=== PATIENT | male | born 1995 | race Caucasian/White ===

== ENCOUNTER 2018-09-06 18:27 | Emergency (ER) | payer MEDICAID ==
[~2018-09-06] VITALS: Ht 127 cm; Wt 40.4 kg
[~2018-09-06 18:27] MED LIST: ALBU2.5V13 IH; CHOL1CRY2 GT; ERYT200S16 GT; GABA-534 GT; IBUP25PO GT; LANS15CA18 GT; MONT10TA22 GT; MULT1TAB73 GT; NYST5ORA PO; PHEN20EL5 GT; TYL2T GT; [UNRECOGNIZED DRUG - CODE] IH
--- NOTE | 2018-09-06 19:37 | NUR ---
Pt BIBMOTHER FROM HOME. Pt HAS HX OF CEREBRAL PALSY. PER MOTHER's STATEMENT Pt HAS BEEN SHOWING SOME SOB FOR THE PAST 2 DAYS. MOTHER DENIES Pt HAVING ANY FEVER AT HOME. Pt WAS SEEN BY A [employer] ASSEMBLER EARLIER TODAY, AND WAS TOLD TO GO TO THE ER TO DO SOME TESTS; MOTHER IS SUSPECTING THAT THERE MIGHT BE AN INFECTION IN HIS LUNGS. Pt IS SITTING IN HIS POWERWHEELCHAIR WITH MOTHER AT SIDE. WAITING FOR MD ORDERS. WILL CONTINUE TO MONITOR Pt's CONDITION AND SAFETY.
[2018-09-06] MEDS ORDERED: IV NS 0.9% 500 ML BAG IV ONE (20:00)
--- NOTE | 2018-09-06 20:00 | NUR ---
ATTEMPTED X2 TO START IV. NO SUCCESS. Pt IS A HARDSTICK WITH CONTRACTED UPPER EXT. PIPE MACHINE OPERATOR WAS UNSUCCESSFUL IN DOING LAB DRAW. AND PER MOTHER's REQUEST DID NOT WANT US TO PICK HIM AGAIN. WILL TRY AGAIN LATER WITH A DIFFERENT NURSE.
[2018-09-06] MEDS ORDERED: MISCELLANEOUS MED 1 EA EA XX ONE (21:00)
[2018-09-06] MEDS ORDERED: GABAPENTIN 300 MG CAPSULE ONE (21:15)
[2018-09-06] MEDS ORDERED: ALBUTEROL FS 2.5 MG/3 ML VIAL.NEB NEB ONE (21:30)
[2018-09-06] MEDS ORDERED: IPRATROPIUM NEB FS 0.5 MG/2.5 ML AMPUL.NEB NEB ONE (21:30)
--- NOTE | 2018-09-06 21:35 | NUR ---
3RD ATTEMPT TO START IV FROM 2ND RN WAS UNSUCCESSFUL. INFORMED MARSII.
--- NOTE | 2018-09-06 22:00 | NUR ---
BREATHING TREATMENT BEING GIVEN AT BEDSIDE.
[2018-09-06 22:02] LABS: ABG BASE EXCESS 2.6 mmol/L; ABG PCO2 39.1 mmHg (35.0-45.0); ABG PH 7.451 (7.350-7.450); ABG PO2 175.3 mmHg (75.0-100.0); AaDO2 64.9 mmHg; COHb 0.9 % (0.5-1.5); MetHb 0.7 % (0.0-1.5); O2Hb 97.4 % (94.0-97.0); SITE, ABG Left Radial
[2018-09-06] MEDS ORDERED: ALBUTEROL FS 2.5 MG/3 ML VIAL.NEB ONE (22:04)
[2018-09-06] MEDS ORDERED: IPRATROPIUM NEB FS 0.5 MG/2.5 ML AMPUL.NEB ONE (22:04)
--- NOTE | 2018-09-06 22:13 | NUR ---
iv access started on Lhand #24g. started pt on IVF NS 500ml
--- NOTE | 2018-09-06 22:29 | NUR ---
UNABLE TO OBTAIN COAG LABS DUE TO BLUE CAP BOTTLE NOT BEING FULL TO TOP. DISH ROOM WORKER YINKA MADE AWARE.
[2018-09-06 22:32] LABS: BASOPHILS # (AUTO) 0.1 /CMM (0.0-0.2); BASOPHILS % (AUTO) 0.8 % (0.0-2.0); EOSINOPHILS % (AUTO) 3.7 % (0.0-6.0); HEMATOCRIT 45 % (39-51); HEMOGLOBIN 15.3 g/dL (13.5-17.5); LYMPHOCYTES # (AUTO) 2.4 /CMM (0.8-4.8); LYMPHOCYTES % (AUTO) 30.8 % (20.0-44.0); MEAN CORPUSCULAR HGB CONC 34 g/dl (31.0-36.0); MEAN CORPUSCULAR VOLUME 95 fL (80-96); MONOCYTES # (AUTO) 0.6 /CMM (0.1-1.30); MONOCYTES % (AUTO) 7.3 % (2.0-12.0); NEUTROPHILS # (AUTO) 4.6 /CMM (1.8-8.9); NEUTROPHILS % (AUTO) 57.4 % (43.0-81.0); PLATELET COUNT (AUTO) 191 /CMM (150-450); RED BLOOD CELL COUNT(AUTO) 4.74 MIL/uL (4.5-6.0); WHITE BLOOD COUNT (AUTO) 7.9 K/uL (4.3-11.0)
[2018-09-06 22:42] LABS: CHLORIDE 103 mmol/L (98-107); POTASSIUM 3.7 mmol/L (3.5-5.1); SODIUM SERUM 138 mmol/L (136-145)
[2018-09-06 22:43] LABS: CALCIUM, SERUM 9.5 mg/dL (8.5-10.1); CARBON DIOXIDE 24 mmol/L (21-32); CREATININE 0.2 mg/dL (0.6-1.3); GLUCOSE 96 mg/dL (74-106); UREA NITROGEN, BLOOD 12 mg/dL (7-18)
--- NOTE | 2018-09-06 22:48 | NUR ---
FLU SWAB OBTAINED. SENT TO LAB.
[2018-09-06 22:50] LABS: BILIRUBIN,TOTAL 0.4 mg/dL (0.2-1.0)
[2018-09-06 22:51] LABS: ALANINE AMINOTRANSFERASE 32 U/L (12-78); ALBUMIN 3.6 g/dL (3.4-5.0); ALKALINE PHOSPHATASE 129 U/L (46-116); ASPARTATE AMINOTRANSFERASE 12 U/L (15-37); BILIRUBIN,DIRECT 0.1 mg/dL (0.0-0.2); TOTAL PROTEIN, SERUM 7.3 g/dL (6.4-8.2)
--- NOTE | 2018-09-06 23:00 | NUR ---
CALLED [facility] [place], AWAITING CALL BACK FROM [facility] PHYSICIAN
--- NOTE | 2018-09-06 23:29 | NUR ---
DID STRAIGHT CATH ON Pt WITH MOTHER'S VERBAL CONSENT OK. URINE SAMPLE COLLECTED. DROPPED OFF URINE SAMPLE AT LAB.
[2018-09-06 23:32] LABS: APPEARANCE,URINE Clear (CLEAR); BILIRUBIN,URINE Negative (NEGATIVE); BLOOD, URINE Trace-intact Ery/uL (NEGATIVE); COLOR,URINE Yellow (YELLOW); KETONES,URINE Negative (NEGATIVE); LEUKOCYTE ESTERASE ,URINE Moderate (NEGATIVE); NITRITE, URINE Negative (NEGATIVE); PH,URINE 7.5 (5.0-8.0); PROTEIN,URINE Negative (NEGATIVE); UGLUCOSE Negative (NEGATIVE); UROBILINOGEN,URINE 0.2 EU/dL (0.2)
[2018-09-06 23:47] LABS: BACTERIA,URINE Few /HPF (None Seen); SQUAMOUS EPITHELIAL CELL,UR Rare /HPF (None Seen); WBC,URINE 21-50 /HPF (0-3)
--- NOTE | 2018-09-06 23:57 | NUR ---
TRANSFER INFORMATION TO [facility]: UNIT 2W, ROOM 2332. ACCEPTING PHYSICIAN DR. PHILLIPS NUMBER FOR REPORT
--- NOTE | 2018-09-07 00:19 | NUR ---
rectal temp taken 99.2f
--- NOTE | 2018-09-07 00:35 | NUR ---
[facility] ETA 0200 TRIP NUMBER: [id number]
--- NOTE | 2018-09-07 00:40 | NUR ---
REPORT GIVEN TO PHILIPP DEUTSCH.
--- NOTE | 2018-09-07 02:01 | NUR ---
ambulance for transport has arrived. pt being transferred to [facility]. vs stable. No s/s of acute distress or severe sob noted. pt being transported to [facility]. mother is taking the powerwheel chair with her in her car and will meet the ambulance over at [facility]. Copy of imaging provided.
[2018-09-07 02:06] VITALS: BP 102/71
== END 2018-09-07 02:09 | disposition short-term general hospital (02) ==
LOC: ER 18:32
DX: J06.9 Acute upper respiratory infection, unspecified (principal); R00.0 Tachycardia, unspecified; G80.9 Cerebral palsy, unspecified; Z93.1 Gastrostomy status; Z90.89 Acquired absence of other organs; Z93.3 Colostomy status; Z98.890 Other specified postprocedural states
CPT/HCPCS: 36415; 36600 ×2; 71045; 80048; 80076; 81001; 82803; 84484; 85025; 87070; 87086; 87804 ×2; 93005; 94640; 99285; A4606; J7040; Z7610; 81000-TC; 83605-TC; 87400

== ENCOUNTER → 2024-04-23 | Emergency (ER) | payer MEDICAID, OTHER ==
[~2024-04-23] VITALS: Ht 152.4 cm; Wt 45.8 kg
[~2024-04-23] MED LIST changes: +ALBUTEROL FS 2.5 MG/3 ML VIAL.NEB NEB ONE; +AZITHROMYCIN 500 MG in IV D5W 250 ML IV ONE; +AZTREONAM 2 G in IV NS 0.9% 100 ML IV ONE; +IPRATROPIUM NEB FS 0.5 MG/2.5 ML AMPUL.NEB NEB ONE; +IV NS 0.9% 1,000 ML BAG IV ONE; +MULT-754 GT; -MULT1TAB73 GT; +methylPREDNISolone SOD SUCC 125 MG/2ML VIAL IV ONE
[2024-04-23 15:19] VITALS: BP 96/69; TEMP 99.4; O2SAT 97
== END | disposition left against medical advice (07) ==
LOC: ER 13:22
DX: A41.9 Sepsis, unspecified organism (principal); G80.9 Cerebral palsy, unspecified; M41.9 Scoliosis, unspecified; Z93.0 Tracheostomy status
CPT/HCPCS: 99283; 93005; J3490; J7030